=== PATIENT | female | born 1960 | race Caucasian/White ===

== ENCOUNTER → 2016-05-16 | Outpatient (CLI) | payer MEDICARE, MEDICAID ==
[~2016-05-16] MED LIST: ATOR80TA PO; BACL10TA PO; CITA40TA5 PO; CLPD75T PO; FLC1T PO; GBPN600T PO; INSASP1U SQ; INSU100V5 SC; LISI2.5T PO; LORA-714 PO; METF1000 PO; METO25TA60 PO; OXYB5TAB9 PO
[2016-05-16 10:49] LABS: BASOPHILS % (AUTO) 1 % (0-2); EOSINOPHILS # (AUTO) 0.1 10^3uL; EOSINOPHILS % (AUTO) 2 % (0-4); MEAN CORPUSCULAR HEMOGLOBIN 29.1 PG (26.0-34.0); MEAN CORPUSCULAR HGB CONC 32.9 g/dL (31.0-37.0); MEAN CORPUSCULAR VOLUME 89 FL (80-100); MEAN PLATELET VOLUME 10.3 FL (6.0-9.5); MONOCYTES # (AUTO) 0.6 X10^3; MONOCYTES % (AUTO) 10 % (3-11); NEUTROPHILS # (AUTO) 2.9 X10^3; NEUTROPHILS % (AUTO) 51 % (51-67); PLATELET COUNT 191 10^3uL (150-450); WHITE BLOOD COUNT 5.63 10^3uL (4.0-11.0)
[2016-05-16 10:57] LABS: ALBUMIN 4.3 g/dL (3.4-5.0); ANION GAP 15.5 MEQ/L (3-15); CALCULATED IONIZED CALCIUM 4.4 mg/dL (3.8-4.6); TOTAL PROTEIN 6.6 g/dL (6.4-8.5)
== END ==
LOC: LAB 10:12 → EDSTATUS 10:25 → LAB 10:27
PROVIDERS: ATTEND Physician Assistant Surgical
DX: E11.9 Type 2 diabetes mellitus without complications (principal); I10 Essential (primary) hypertension; Z13.29 Encounter for screening for other suspected endocrine disorder; E78.4 Other hyperlipidemia
CPT/HCPCS: 36415; 80053; 80061; 83036; 84443; 85025

== ENCOUNTER → 2016-05-29 | Outpatient (CLI) | payer MEDICARE, MEDICAID ==
--- NOTE | 2016-05-29 10:13 | Diagnostic Imaging Report ---
PROCEDURE: US abdomen complete. TECHNIQUE: Multiple real-time grayscale images were obtained over the abdomen in various projections. INDICATION: Abnormal liver function test. COMPARISON: None. DISCUSSION: Sonographic evaluation of the abdomen was performed. The liver parenchyma is hyperechoic and difficult to penetrate, consistent with diffuse fatty infiltration. The liver is normal in size. A discrete hepatic mass is not identified on this limited exam. The gallbladder is surgically absent. The pancreas is mostly obscured due to overlying bowel gas. No evidence of intra or extrahepatic biliary duct dilatation. The common bile duct is normal measuring 0.4 cm. The spleen appears normal in echotexture and size measuring 11.8 cm. The visualized aorta and IVC appear within normal limits. The bilateral kidneys appear normal in echotexture and size without evidence of hydronephrosis or renal mass. The right kidney measures 9.6 cm. The left kidney measures 11.3 cm. There is no ascites or abnormal bowel loops identified. No sonographic Mcneill sign was reported. IMPRESSION: 1. Fatty infiltration of the liver. 2. Status post cholecystectomy. Dictated by: Dictated on workstation # [id number]
[2016-05-29 10:18] LABS: ALBUMIN 4.4 g/dL (3.4-5.0); TOTAL PROTEIN 7.4 g/dL (6.4-8.5)
== END ==
LOC: RAD 09:00
PROVIDERS: ATTEND Physician Assistant Surgical
DX: R79.89 Other specified abnormal findings of blood chemistry (principal); K76.0 Fatty (change of) liver, not elsewhere classified; Z90.49 Acquired absence of other specified parts of digestive tract
CPT/HCPCS: 36415; 76700; 80076

== ENCOUNTER → 2016-06-12 | Outpatient (CLI) | payer MEDICARE, MEDICAID ==
[2016-06-12 19:20] LABS: HEPATITIS A ANTIBODY IGM Negative; HEPATITIS B CORE ABY IGM Negative; HEPATITIS B SURFACE ANTIGEN C Negative
== END ==
LOC: LAB 12:50
PROVIDERS: ATTEND Family Medicine
DX: R79.89 Other specified abnormal findings of blood chemistry (principal); R53.83 Other fatigue
CPT/HCPCS: 36415; 80074

== ENCOUNTER → 2016-08-13 | Outpatient (REF) | payer MEDICARE, MEDICAID | LOC: LAB 09:38 | PROVIDERS: ATTEND Family Medicine | DX: E11.42 Type 2 diabetes mellitus with diabetic polyneuropathy (principal) | CPT/HCPCS: 83036 ==